=== PATIENT | male | born 1995 | race Caucasian/White ===

== ENCOUNTER 2020-09-04 06:57 | Emergency (ER) | payer BC ==
[~2020-09-04] VITALS: Ht 177.8 cm; Wt 63.6 kg
[~2020-09-04 06:57] MED LIST: NO HOME MEDICATIONS
[2020-09-04 07:14] VITALS: TEMP 98.5
[2020-09-04 07:39] LABS: BASO % 0.3 % (0.0-2.0); EOS % 0.2 % (0-4.0); GRAN # 4.4 (1.4-6.5); GRAN % 66.9 % (42.2-75.2); HEMOGLOBIN 16.2 g/dl (13.5-18.0); LYMPH # 1.3 (1.2-3.4); LYMPH % 20.2 % (20.0-51.0); MEAN CELL VOLUME 85 fl (80.0-100.0); MEAN CORPUSCULAR HEMOGLOBIN 31 pg (27.0-31.0); MEAN CORPUSCULAR HGB CONC 36 g/dl (33.0-37.0); MEAN PLATELET VOLUME 9.7 fl (7.4-10.4); MONO # 0.8 (0.1-0.6); MONO % 12.1 % (1.7-9.3); PLATELET COUNT 253 K/mm3 (130-400); REDCELL DISTRIBUTION WIDTH-CV 11.9 % (11.5-14.5)
[2020-09-04 08:42] LABS: ALBUMIN 4.9 gm/dL (3.5-5.0); BILIRUBIN,TOTAL 0.9 mg/dL (0.0-1.0); C-REACTIVE PROTEIN 2.2 mg/dL (0.0-0.9); CALCIUM 9.9 mg/dL (8.4-10.2); CREATININE, serum 1.05 (0.66-1.25); POTASSIUM 3.1 mmol/L (3.4-5.0); TOTAL PROTEIN 8.8 gm/dL (6.4-8.2)
[2020-09-04 10:08] LABS: COLLECTION METHOD CLEAN CATCH
[2020-09-04 10:21] LABS: MUCOUS Present /lpf; PH 5 (5-8); SQUAMOUS EPITHELIAL None Seen /hpf; URINE APPEARANCE Hazy; URINE BACTERIA None Seen /hpf; URINE BILIRUBIN Negative (NEGATIVE); URINE BLOOD Negative (NEGATIVE); URINE COLOR Yellow; URINE GLUCOSE Negative (NEGATIVE); URINE KETONE 2+ (NEGATIVE); URINE LEUKOCYTE ESTERASE Negative (NEGATIVE); URINE NITRATE Negative (NEGATIVE); URINE PROTEIN(semi-quant) 2+ (NEGATIVE); URINE RBC 0-2 /hpf; URINE UROBILINOGEN Negative (NEGATIVE)
[2020-09-04] MEDS ORDERED: ZOFRAN ODT4 MG PO (11:01)
[2020-09-04 11:06] VITALS: BP 133/87; PULSE 74
== END 2020-09-04 11:15 | disposition home or self-care (01) ==
LOC: COL.ER 06:57
PROVIDERS: Family Medicine
DX: R10.9 Unspecified abdominal pain (principal); R11.2 Nausea with vomiting, unspecified; R19.7 Diarrhea, unspecified
CPT/HCPCS: C9113; J2405; J3010; J7120